=== PATIENT | female | born 1965 | race Caucasian/White ===

== ENCOUNTER 2016-11-26 16:07 | Emergency (ER) | payer OTHER ==
--- NOTE | 2016-11-26 17:06 | DIAGNOSTIC IMAGING REPORT ---
PROCEDURE: XR CHEST 2 VIEW INDICATION: FEVER TECHNIQUE: PA and lateral views. COMPARISON: Compared to chest x-ray on 01/05/2016 FINDINGS: Lungs are clear. Heart and mediastinum are normal. Thorax is normal. IMPRESSION: 1. Negative chest.
--- NOTE | 2016-11-26 17:59 | ED NURSING NOTES ---
Clinical Report - Nurses [facility] [address] [place] [address] 11/26/2016 16:07 Patient: KWAN JONES TRIAGE Triage time 16:19. Acuity: LEVEL 3. Chief Complaint: FEVER and FATIGUE (headache, vomiting, onset 11/21/16. She was seen at [facility] and was prescribed Prednisone, Zithromax, and Pro-air inhaler. Positive Flu on Tuesday.). 16:35 11/26/16. SEPSIS SCREEN: Sepsis Screen. Negative (no infection suspected/documented). GUDELIA COMA SCORE: Gudelia Coma Scale: 15- eyes open spontaneously (4); best verbal response- oriented x 4 (5); best motor response- obeys commands (6). --16:35 Kenji Lerner R.N. 16:19 11/26/16. BP: 130/76. HR: 116. RR: 20. O2 saturation: 94% on room air. Temp: 100.4 F (oral). Pain level now: 05/19. --16:35 Kenji Lerner R.N. Weight: 130.1 kg stated. Height/Length: 64 inches Per Patient. BMI: 49.3. --16:32 Kenji Lerner R.N. Medications Advair Diskus Inhalation. --16:59 Kenji Lerner R.N. Zithromax Oral. --17:00 Kenji Lerner R.N. Cyclobenzaprine HCl Oral. --17:00 Kenji Lerner R.N. Cymbalta Oral (Capsule Delayed Release Particles 30 mg) 2 capsules, daily. --17:00 Kenji Lerner R.N. Humira Pen Subcutaneous. --17:00 Kenji Lerner R.N. DuoNeb. --17:01 Kenji Lerner R.N. Levothyroxine Sodium Oral. --17:01 Kenji Lerner R.N. Lyrica Oral. --17:01 Simbeck, Kenji, R.N. PredniSONE Oral. --17:01 Kenji Lerner R.N. PriLOSEC Oral. --17:02 Kenji Lerner R.N. Allergies Constrast IV Dye. Penicillins. --16:20 Kenji Lerner R.N. Sertraline. --17:07 Kenji Lerner R.N. Toradol. --17:07 Kenji Lerner R.N. Tromethamine. --17:09 Kenji Lerner R.N. Cipro. --17:09 Kenji Lerner R.N. Iodine. --17:09 Kenji Lerner R.N. Influenza vaccine Trival. --17:10 Kenji Lerner R.N. History Arrived by private vehicle. Historian: patient and family. Accompanied by family. Treatment OPERATIONS ADVISOR: None. SOCIAL HX: Never smoker. No alcohol use or drug use. ABUSE ASSESSMENT: No report of abuse. --16:35 Kenji Lerner R.N. PROBLEMS: Bronchitis. Seizure. Seizure Disorder. Immunizations. --16:21 Kenji Lerner R.N. Thyroid Disease. Pneumonia. Liver disease. Depression. Anxiety Reaction. Irritable Bowel Syndrome. Fibromyalgia. Sleep paralysis. Vitamin D deficiency. Paresthesia. Pseudoseizure. Psoriasis. Sleep Apnea. PTSD. Psoriatic arthritis. Chronic Headache. --17:14 Kenji Lerner R.N. ADDITIONAL SURGERIES: Appendectomy. Hysterectomy. Tonsillectomy. --16:21 Kenji Lerner R.N. Interventions ID band on patient. To treatment room. --16:35 Kenji Lerner R.N. NURSING PROGRESS NOTES 16:45 11/26/2016 Site #1 started via IV in the right antecubital space with an 18g angiocath, with aseptic technique and good blood return; one attempt. Blood drawn: rainbow set. Labeled in the presence of the patient and sent to the lab. Saline lock flushed with 10 mL saline. --16:51 Kenji Lerner R.N. 16:45 11/26/2016 Started bag #1 1000 mL IV Fluids IV NS (Saline); bolus of 1000 mL over 1 hour(s) via site #1. Allergies verified and confirmed 5 rights. IV patency established. IV site checked: no pain, redness, or swelling. IV flushed thoroughly pre- and post-medication administration. --16:52 Kenji Lerner R.N. late entry -16:35. Patient gowned. Head of bed elevated. Reassurance given. Two patient identifiers checked. Call light placed in reach. Side rails up x 2. Bed placed in lowest position. Brakes of bed on. Patient ready for evaluation- chart flagged. --16:55 Kenji Lerner R.N. Patient transported to radiology by stretcher with Urlist. ([id number]). --16:56 Kenji Lerner R.N. 17:06 11/26/2016 Ibuprofen PO Tablets 800 mg given. Allergies verified and confirmed 5 rights. --17:06 Kenji Lerner R.N. 17:37 11/26/16. BP: 124/75. HR: 114. RR: 20. O2 saturation: 94% on room air. Pain level now: 810. --17:38 Kenji Lerner R.N. 18:20 11/26/2016 IV Fluids IV NS Bag Change: bag #1 completed. Total amount infused: 1000. STARTED bag #2 (1000 mL) at 1000 mL/hr via IV pump. Confirmed 5 rights. IV patency established. IV site checked: no pain, redness, or swelling. IV flushed thoroughly. --18:24 Kenji Lerner R.N. 18:28 11/26/2016 Zofran (Ondansetron HCl) IVP 4 mg given over 1 minute(s) via site #1. Allergies verified and confirmed 5 rights. IV patency established. IV site checked: no pain, redness, or swelling. IV flushed thoroughly pre- and post-medication administration. IVP given by RN. --18:32 Kenji Lerner R.N. 18:29 11/26/2016 Dilaudid (HYDROmorphone HCl PF) IVP 0.5 mg given over 1 hour(s) via site #1. Allergies verified, confirmed 5 rights and sedative warning given to the patient. IV patency established. IV site checked: no pain, redness, or swelling. IV flushed thoroughly pre- and post-medication administration. IVP given by RN. --18:33 Kenji Lerner R.N. 19:05. Care transferred and report given (Alfredo Roldan, RN). --19:16 Kenji Lerner R.N. 19:27 11/26/16. BP: 128/52. HR: 109. RR: 16. O2 saturation: 94% on room air. Pain level now: 02/16. Additional comments: "Eyes hurt". --19:30 Alfredo Chavez R.N. 19:30 11/26/2016 IV Fluids IV NS Discontinued: bag #2 infused. Total amount infused: 1000 mL. IV patency established. IV site checked: no pain, redness, or swelling. IV flushed thoroughly. --19:33 Alfredo Chavez R.N. 20:30 11/26/2016 Dilaudid (HYDROmorphone HCl PF) IVP 1 mg given over 2 minute(s) via site #1. Allergies verified, confirmed 5 rights and sedative warning given to the patient. IV patency established. IV site checked: no pain, redness, or swelling. IV flushed thoroughly pre- and post-medication administration. IVP given by RN. --04:27 Alfredo Chavez R.N. DISPOSITION / DISCHARGE 20:40 11/26/16. BP: 128/88. HR: 98. RR: 16. O2 saturation: 97% on room air. Temp: 98.9 F. Pain level now: 10/19. --04:45 Alfredo Chavez R.N. Departure time: 2047. --04:45 Alfredo Chavez R.N. 20:48. Condition at departure: improved. No learning barriers present. Discharge instructions provided and reviewed with the patient. Reviewed medication(s) (prescription given to pt). Reviewed referral to family practice for followup. Patient and family verbalized understanding. Written instructions provided in Portuguese. The patient was discharged by the physician senior office assistant. She was discharged home and accompanied by family. She left the Emergency Department in a wheelchair and via private vehicle. Family member driving. --04:47 Alfredo Chavez R.N. Locked/Released at 11/27/2016 4:49 by Alfredo Chavez R.N.
--- NOTE | 2016-11-26 17:59 | ED NURSING NOTES ---
Clinical Report - Nurses [facility] [address] [place] [address] 11/26/2016 16:07 Patient: KWAN JONES TRIAGE Triage time 16:19. Acuity: LEVEL 3. Chief Complaint: FEVER and FATIGUE (headache, vomiting, onset 11/21/16. She was seen at [facility] and was prescribed Prednisone, Zithromax, and Pro-air inhaler. Positive Flu on Tuesday.). 16:35 11/26/16. SEPSIS SCREEN: Sepsis Screen. Negative (no infection suspected/documented). GUDELIA COMA SCORE: Gudelia Coma Scale: 15- eyes open spontaneously (4); best verbal response- oriented x 4 (5); best motor response- obeys commands (6). --16:35 Kenji Lerner R.N. 16:19 11/26/16. BP: 130/76. HR: 116. RR: 20. O2 saturation: 94% on room air. Temp: 100.4 F (oral). Pain level now: 05/19. --16:35 Kenji Lerner R.N. Weight: 130.1 kg stated. Height/Length: 64 inches Per Patient. BMI: 49.3. --16:32 Kenji Lerner R.N. Medications Advair Diskus Inhalation. --16:59 Kenji Lerner R.N. Zithromax Oral. --17:00 Kenji Lerner R.N. Cyclobenzaprine HCl Oral. --17:00 Kenji Lerner R.N. Cymbalta Oral (Capsule Delayed Release Particles 30 mg) 2 capsules, daily. --17:00 Kenji Lerner R.N. Humira Pen Subcutaneous. --17:00 Kenji Lerner R.N. DuoNeb. --17:01 Kenji Lerner R.N. Levothyroxine Sodium Oral. --17:01 Kenji Lerner R.N. Lyrica Oral. --17:01 Simbeck, Kenji, R.N. PredniSONE Oral. --17:01 Kenji Lerner R.N. PriLOSEC Oral. --17:02 Kenji Lerner R.N. Allergies Constrast IV Dye. Penicillins. --16:20 Kenji Lerner R.N. Sertraline. --17:07 Kenji Lerner R.N. Toradol. --17:07 Kenji Lerner R.N. Tromethamine. --17:09 Kenji Lerner R.N. Cipro. --17:09 Kenji Lerner R.N. Iodine. --17:09 Kenji Lerner R.N. Influenza vaccine Trival. --17:10 Kenji Lerner R.N. History Arrived by private vehicle. Historian: patient and family. Accompanied by family. Treatment LOAN ORIGINATOR: None. SOCIAL HX: Never smoker. No alcohol use or drug use. ABUSE ASSESSMENT: No report of abuse. --16:35 Kenji Lerner R.N. PROBLEMS: Bronchitis. Seizure. Seizure Disorder. Immunizations. --16:21 Kenji Lerner R.N. Thyroid Disease. Pneumonia. Liver disease. Depression. Anxiety Reaction. Irritable Bowel Syndrome. Fibromyalgia. Sleep paralysis. Vitamin D deficiency. Paresthesia. Pseudoseizure. Psoriasis. Sleep Apnea. PTSD. Psoriatic arthritis. Chronic Headache. --17:14 Kenji Lerner R.N. ADDITIONAL SURGERIES: Appendectomy. Hysterectomy. Tonsillectomy. --16:21 Kenji Lerner R.N. Interventions ID band on patient. To treatment room. --16:35 Kenji Lerner R.N. NURSING PROGRESS NOTES 16:45 11/26/2016 Site #1 started via IV in the right antecubital space with an 18g angiocath, with aseptic technique and good blood return; one attempt. Blood drawn: rainbow set. Labeled in the presence of the patient and sent to the lab. Saline lock flushed with 10 mL saline. --16:51 Kenji Lerner R.N. 16:45 11/26/2016 Started bag #1 1000 mL IV Fluids IV NS (Saline); bolus of 1000 mL over 1 hour(s) via site #1. Allergies verified and confirmed 5 rights. IV patency established. IV site checked: no pain, redness, or swelling. IV flushed thoroughly pre- and post-medication administration. --16:52 Kenji Lerner R.N. late entry -16:35. Patient gowned. Head of bed elevated. Reassurance given. Two patient identifiers checked. Call light placed in reach. Side rails up x 2. Bed placed in lowest position. Brakes of bed on. Patient ready for evaluation- chart flagged. --16:55 Kenji Lerner R.N. Patient transported to radiology by stretcher with Baiyaxuan. ([id number]). --16:56 Kenji Lerner R.N. 17:06 11/26/2016 Ibuprofen PO Tablets 800 mg given. Allergies verified and confirmed 5 rights. --17:06 Kenji Lerner R.N. 17:37 11/26/16. BP: 124/75. HR: 114. RR: 20. O2 saturation: 94% on room air. Pain level now: 810. --17:38 Kenji Lerner R.N. 18:20 11/26/2016 IV Fluids IV NS Bag Change: bag #1 completed. Total amount infused: 1000. STARTED bag #2 (1000 mL) at 1000 mL/hr via IV pump. Confirmed 5 rights. IV patency established. IV site checked: no pain, redness, or swelling. IV flushed thoroughly. --18:24 Kenji Lerner R.N. 18:28 11/26/2016 Zofran (Ondansetron HCl) IVP 4 mg given over 1 minute(s) via site #1. Allergies verified and confirmed 5 rights. IV patency established. IV site checked: no pain, redness, or swelling. IV flushed thoroughly pre- and post-medication administration. IVP given by RN. --18:32 Kenji Lerner R.N. 18:29 11/26/2016 Dilaudid (HYDROmorphone HCl PF) IVP 0.5 mg given over 1 hour(s) via site #1. Allergies verified, confirmed 5 rights and sedative warning given to the patient. IV patency established. IV site checked: no pain, redness, or swelling. IV flushed thoroughly pre- and post-medication administration. IVP given by RN. --18:33 Kenji Lerner R.N. 19:05. Care transferred and report given (Alfredo Roldan, RN). --19:16 Kenji Lerner R.N. 19:27 11/26/16. BP: 128/52. HR: 109. RR: 16. O2 saturation: 94% on room air. Pain level now: 02/16. Additional comments: "Eyes hurt". --19:30 Alfredo Chavez R.N. 19:30 11/26/2016 IV Fluids IV NS Discontinued: bag #2 infused. Total amount infused: 1000 mL. IV patency established. IV site checked: no pain, redness, or swelling. IV flushed thoroughly. --19:33 Alfredo Chavez R.N. 20:30 11/26/2016 Dilaudid (HYDROmorphone HCl PF) IVP 1 mg given over 2 minute(s) via site #1. Allergies verified, confirmed 5 rights and sedative warning given to the patient. IV patency established. IV site checked: no pain, redness, or swelling. IV flushed thoroughly pre- and post-medication administration. IVP given by RN. --04:27 Alfredo Chavez R.N. DISPOSITION / DISCHARGE 20:40 11/26/16. BP: 128/88. HR: 98. RR: 16. O2 saturation: 97% on room air. Temp: 98.9 F. Pain level now: 10/19. --04:45 Alfredo Chavez R.N. Departure time: 2047. --04:45 Alfredo Chavez R.N. 20:48. Condition at departure: improved. No learning barriers present. Discharge instructions provided and reviewed with the patient. Reviewed medication(s) (prescription given to pt). Reviewed referral to family practice for followup. Patient and family verbalized understanding. Written instructions provided in Guyanese. The patient was discharged by the physician family and divorce legal assistant. She was discharged home and accompanied by family. She left the Emergency Department in a wheelchair and via private vehicle. Family member driving. --04:47 Alfredo Chavez R.N. Locked/Released at 11/27/2016 4:49 by Alfredo Chavez R.N.
--- NOTE | 2016-11-26 17:59 | ED ORDER SUMMARY ---
..... Patient: KWAN JONES OrderSheet [facility] VisitID: [id number] [address] [place] [address] 51y, F Registration Date/Time: 11/26/2016 ORDER SHEET Weight: 130.1 kg (stated) Allergies: Constrast IV Dye, Penicillins, Sertraline, Toradol, Tromethamine, Cipro, Iodine, Influenza vaccine Trival GENERAL ORDERS: Chest 2V Urgent (16:36 11/26/2016 JCoates) (Ack 16:44 LTapper) (19:09 [facility] Speech Language) CBC w Diff Urgent (16:37 11/26/2016 JCoates) (Ack 16:45 LTapper) (16:51 JSimbeck R.N.) CMP Urgent (16:37 11/26/2016 JCoates) (Ack 16:45 LTapper) (16:51 JSimbeck R.N.) Urine Urgent (16:37 11/26/2016 JCoates) (16:38 JSimbeck R.N.) UA-Culture if indicated Urgent (16:37 11/26/2016 JCoates) (16:38 JSimbeck R.N.) - (February DC home after pain control. Thanks.) (17:55 11/26/2016 JCoates) (4:26 omanelli R.N.) MEDICATION ORDERS: Ibuprofen PO 800 mg (NOW) (16:37 11/26/2016 JCoates) (17:06 JSimbeck R.N.) IV FLUIDS: IV NS with Normal Saline 1 Liter: initial bolus 1000 mL (1000 mL/hr), then 1000 mL/hr for X1 (NOW) (16:36 11/26/2016 JCoates) (16:52 JSimbeck R.N.) IV Saline Lock (16:37 11/26/2016 JCoates) (16:51 JSimbeck R.N.) Dilaudid IV 0.5 mg (NOW) (17:55 11/26/2016 JCoates) (18:33 JSimbeck R.N.) Zofran IV 4 mg (NOW) (17:55 11/26/2016 JCoates) (18:32 JSimbeck R.N.) Dilaudid IV 1 mg (NOW) (20:52 11/26/2016 JCoates) (4:27 Rene Gramajo) ORDER SHEET NOTES: [Electronically signed by Fredi Vidales (00:08 11/27/2016)] [Electronically signed by Alfredo Chavez R.N. (04:49 11/27/2016)] [Electronically locked/signed by Alfredo Chavez R.N. (04:49 11/27/2016)]
--- NOTE | 2016-11-26 17:59 | ED CLINICAL REPORT ---
Clinical Report - Physicians/Mid Levels [facility] [address] [place] [address] 11/26/2016 16:07 Patient: KWAN JONES Time Seen: 16:25 Nov 26 2016; upon arrival. Arrived- By private vehicle. Historian- patient. HISTORY OF PRESENT ILLNESS Is still present. Chief Complaint: HEADACHE and FEVER. Cough and runny nose. This started 3 days ago. It was abrupt in onset. Described as a global headache. No neck pain. Not located in the facial region. At its maximum, severity described as 7 / 10. No associated nausea or vomiting. (Patient developed a cough, runny nose, sore throat, fever and headache 3 days ago. She was seen at the emergency room where she was diagnosed with influenza. However, her symptoms have persisted. She is not able to take Tylenol as she says herLFTs have been high in the past. She alsodidn't think she could take ibuprofen but says she hasn't had any problems with her kidneys.). Recent medical care: The patient was seen recently by a health care provider. REVIEW OF SYSTEMS The patient has had sinus pressure, fever, ear pain and a sore throat and cough. She has had pain on urination and back pain. No chest pain, difficulty breathing, abdominal pain, diarrhea or skin rash. All systems otherwise negative, except as recorded above. PAST HISTORY See nurses notes. History of chronic headaches. No history of heart disease or lung disease. SOCIAL HISTORY Never smoker. No alcohol use or drug use. ADDITIONAL NOTES The nursing notes have been reviewed. PHYSICAL EXAM Appearance: The patient appears ill and uncomfortable, is morbidly obese and is well nourished but not toxic appearing. She has normal color. Patient in mild distress. Eyes: Pupils equal, round and reactive to light. Eyes normal inspection. No photophobia. ENT: Ears normal. Nose normal. Pharynx normal. Neck: Normal inspection. Neck supple. No meningeal signs or lymphadenopathy. CVS: Normal heart rate and rhythm. Heart sounds normal. Respiratory: No respiratory distress. Breath sounds normal. Abdomen: Soft and nontender. Back: No CVA tenderness. (Mild lower lumbar paraspinous muscle tenderness to palpation.). Skin: Skin warm and dry. Normal skin color. No rash. Extremities: Extremities exhibit normal ROM. Neuro: Oriented X 3. Alert. Mood/affect normal. Speech normal. No motor deficit. No sensory deficit. LABS, X-RAYS, AND EKG Laboratory Tests: UA-Culture if indicated: (LISBETH: 11/26/2016 16:25) ( [facility] [place] 16:55) Final results Test Result Flag Units (Reference) URINE COLOR YELLOW URINE APPEARANCE CLEAR URINE GLUCOSE NEGATIVE (NEGATIVE) URINE BILIRUBIN NEGATIVE (NEGATIVE) URINE KETONE NEGATIVE (NEGATIVE) URINE SPECIFIC GRAVITY 1.010 (1.010-1.030) URINE PH 6.0 (5.0-8.0) URINE PROTEIN NEGATIVE (NEGATIVE) URINE UROBILINOGEN 0.2 EU/dL (0.2-1.0) URINE NITRITE NEGATIVE (NEGATIVE) URINE BLOOD NEGATIVE (NEGATIVE) URINE LEUK ESTERASE NEGATIVE (NEGATIVE) URINE RBC 0-1 rbc/hpf (0-1) URINE WBC 0-1 wbc/hpf (0-1) URINE EPITHELIAL CELLS 1-3 EPI/hpf (0-5) URINE BACTERIA TRACE (<1+) (NONE SEEN) URINE COMMENT CULT NOT INDICATED URINE CULTURES ARE SET-UP BASED ON THE FOLLOWING CRITERIA:POSITIVE NITRITEPOSITIVE LEUKOCYTE ESTERASEGREATER THAN 10 WHITE BLOOD CELLSMODERATE (2+) OR GREATER BACTERIA Urine: (LISBETH: 11/26/2016 16:25) ( [facility] [place]/26/2016 16:51) Final results Test Result Flag Units (Reference) URINE NEGATIVE CBC w Diff: (LISBETH: 11/26/2016 16:45) ( [facility] 16[facility]58[facility] Final results Test Result Flag Units (Reference) WHITE BLOOD COUNT 4.5 K/uL (4.5-11.5) RED BLOOD COUNT 4.57 M/uL (4.00-5.20) HEMOGLOBIN 13.1 gm/dL (12.0-16.0) HEMATOCRIT 39.2 % (36.0-46.0) MEAN CELL VOLUME 86 fL (80-100) MEAN CORPUSCULAR HGB 29 pg (26-34) MEAN CORPUSCULAR HGB CONC 33 g/dL (31-37) RED CELL DISTRIBUTION WIDTH 14.9 H % (11.6-14.8) PLATELET COUNT 239 K/uL (150-400) NEUTROPHIL % 72.9 % (50-75) LYMPH % 17.7 L % (25-40) MONO % 6.4 % (3-14) EOSINOPHIL % 2.3 % (0-4) BASOPHIL % 0.7 % (0-2) CMP: (LISBETH: 11/26/2016 16:45) ( [facility] 11/26/2016 17:13) Final results Test Result Flag Units (Reference) GLUCOSE 93 mg/dL (70-110) BUN 18 mg/dL (7-18) CREATININE 0.9 mg/dL (0.6-1.3) Estimated GFR >60 mL/min Estimated GFR- >60 mL/min Note: Persistent reduction over 3 months in eGFR<60 mL/min/1.73 m2 defines CKD. Patients with eGFR values>=60 mL/min/1.73 m2 may also have CKD if evidence ofpersistent proteinuria. Additional information may be foundat www.kidney.org. SODIUM 139 mmol/L (136-145) POTASSIUM 3.6 mmol/L (3.5-5.1) CHLORIDE 100 mmol/L (98-107) CARBON DIOXIDE 27 mmol/L (21-32) CALCIUM 7.8 L mg/dL (8.5-10.1) TOTAL PROTEIN 7.4 g/dL (6.4-8.2) ALBUMIN 3.6 g/dL (3.3-5.0) BILIRUBIN, TOTAL 0.6 mg/dL (0.0-1.0) ALKALINE PHOSPHATASE 81 U/L (46-116) AST (SGOT) 852 H U/L (15-37) ALT (SGPT) 434 H U/L (12-78) . PROGRESS AND PROCEDURES Course of Care: 16:37 11/26/16. Patient stable. Diagnosed with influenza 3 days ago which gives usa cause of her symptoms. We'll get a chest x-ray to rule out infiltrate as well as a UA to rule out UTI. Otherwise hydrate and give ibuprofen. If her LFTs are normal we'll give her some Tylenol as well. Patient better after ibuprofen. She does have significantly elevated LFTs so no Tylenol. We'll give a little bit of Dilaudid for pain control and discharged home. CLINICAL IMPRESSION Acute fever Influenza with upper respiratory infection. INSTRUCTIONS Take Tylenol (Acetaminophen) or Motrin (Ibuprofen) as needed for fever control. Take medication according to label instructions. Rest for three days. No dietary restrictions. Warnings: SEDATIVE MEDICATION: You were given sedative medication during your visit. Do not drive or operate dangerous machinery for 12 hours. GENERAL WARNINGS: Return or contact your physician immediately if your condition worsens or changes unexpectedly, if not improving as expected, or if other problems arise. SPECIFICALLY, return if you develop vomiting; or if there is no improvement in the fever. OTC Medications: Motrin IB 200 mg (available over the counter): take 3 orally every 8 hours Follow-up: Follow up with your doctor in three days if not better. Understanding of the discharge instructions verbalized by patient and family. (Electronically signed by Fredi Vidales, 11/27/2016 0:08)
--- NOTE | 2016-11-26 17:59 | ED ORDER SUMMARY ---
..... Patient: KWAN JONES OrderSheet [facility] VisitID: [id number] [address] [place] [address] 51y, F Registration Date/Time: 11/26/2016 ORDER SHEET Weight: 130.1 kg (stated) Allergies: Constrast IV Dye, Penicillins, Sertraline, Toradol, Tromethamine, Cipro, Iodine, Influenza vaccine Trival GENERAL ORDERS: Chest 2V Urgent (16:36 11/26/2016 JCoates) (Ack 16:44 LTapper) (19:09 [facility] C[facility] And Wheat Farmer) CBC w Diff Urgent (16:37 11/26/2016 JCoates) (Ack 16:45 LTapper) (16:51 JSimbeck R.N.) CMP Urgent (16:37 11/26/2016 JCoates) (Ack 16:45 LTapper) (16:51 JSimbeck R.N.) Urine Urgent (16:37 11/26/2016 JCoates) (16:38 JSimbeck R.N.) UA-Culture if indicated Urgent (16:37 11/26/2016 JCoates) (16:38 JSimbeck R.N.) - (February DC home after pain control. Thanks.) (17:55 11/26/2016 JCoates) (4:26 omanelli R.N.) MEDICATION ORDERS: Ibuprofen PO 800 mg (NOW) (16:37 11/26/2016 JCoates) (17:06 JSimbeck R.N.) IV FLUIDS: IV NS with Normal Saline 1 Liter: initial bolus 1000 mL (1000 mL/hr), then 1000 mL/hr for X1 (NOW) (16:36 11/26/2016 JCoates) (16:52 JSimbeck R.N.) IV Saline Lock (16:37 11/26/2016 JCoates) (16:51 JSimbeck R.N.) Dilaudid IV 0.5 mg (NOW) (17:55 11/26/2016 JCoates) (18:33 JSimbeck R.N.) Zofran IV 4 mg (NOW) (17:55 11/26/2016 JCoates) (18:32 JSimbeck R.N.) Dilaudid IV 1 mg (NOW) (20:52 11/26/2016 JCoates) (4:27 Rene Gramajo) ORDER SHEET NOTES: [Electronically signed by Fredi Vidales (00:08 11/27/2016)] [Electronically signed by Alfredo Chavez R.N. (04:49 11/27/2016)] [Electronically locked/signed by Alfredo Chavez R.N. (04:49 11/27/2016)]
--- NOTE | 2016-11-27 04:50 | ED MAR SUMMARY ---
..... Medication Administration Record [facility] [address] [place] [address] Patient: KWAN JONES Visit ID: [id number] 51y, F Weight: 130.1 kg Height/Length: 64 in BMI: 49.3 ALLERGIES: Constrast IV Dye, Penicillins, Toradol, Sertraline, Influenza vaccine Trival, Iodine, Cipro, Tromethamine Start 16:45 11/26/2016 Kenji Lerner R.N., Stop 19:30 11/26/2016 Alfredo Chavez R.N. Medication Administered: IV NS (SALINE), Dose: IV Fluids, Bolus: 1000 mL over 1 hour(s), Dispensed: 1000 mL bag, Site: #1 right AC. Medication Ordered: IV NS with Normal Saline 1 Liter: initial bolus 1000 mL (1000 mL/hr), then 1000 mL/hr for X1 (NOW). Given 17:06 11/26/2016 Kenji Lerner R.N. Medication Administered: IBUPROFEN [PO], Dose: 800 mg Tablets PO. Medication Ordered: Ibuprofen PO 800 mg (NOW). Given 18:28 11/26/2016 Kenji Lerner R.N. Medication Administered: ZOFRAN [IVP] (ONDANSETRON HCL), Dose: 4 mg IVP over 1 minute(s), Site: #1 right AC. Medication Ordered: Zofran IV 4 mg (NOW). Given 18:29 11/26/2016 Kenji Lerner R.N. Medication Administered: DILAUDID [IVP] (HYDROMORPHONE HCL PF), Dose: 0.5 mg IVP over 1 hour(s), Site: #1 right AC. Medication Ordered: Dilaudid IV 0.5 mg (NOW). Given 20:30 11/26/2016 Aflredo Chavez R.N. Medication Administered: DILAUDID [IVP] (HYDROMORPHONE HCL PF), Dose: 1 mg IVP over 2 minute(s), Site: #1 right AC. Medication Ordered: Dilaudid IV 1 mg (NOW).
--- NOTE | 2016-11-27 04:50 | ED MAR SUMMARY ---
..... Medication Administration Record [facility] [address] [place] [address] Patient: KWAN JONES Visit ID: [id number] 51y, F Weight: 130.1 kg Height/Length: 64 in BMI: 49.3 ALLERGIES: Constrast IV Dye, Penicillins, Toradol, Sertraline, Influenza vaccine Trival, Iodine, Cipro, Tromethamine Start 16:45 11/26/2016 Kenji Lerner R.N., Stop 19:30 11/26/2016 Alfredo Chavez R.N. Medication Administered: IV NS (SALINE), Dose: IV Fluids, Bolus: 1000 mL over 1 hour(s), Dispensed: 1000 mL bag, Site: #1 right AC. Medication Ordered: IV NS with Normal Saline 1 Liter: initial bolus 1000 mL (1000 mL/hr), then 1000 mL/hr for X1 (NOW). Given 17:06 11/26/2016 Kenji Lerner R.N. Medication Administered: IBUPROFEN [PO], Dose: 800 mg Tablets PO. Medication Ordered: Ibuprofen PO 800 mg (NOW). Given 18:28 11/26/2016 Kenji Lerner R.N. Medication Administered: ZOFRAN [IVP] (ONDANSETRON HCL), Dose: 4 mg IVP over 1 minute(s), Site: #1 right AC. Medication Ordered: Zofran IV 4 mg (NOW). Given 18:29 11/26/2016 Kenji Lerner R.N. Medication Administered: DILAUDID [IVP] (HYDROMORPHONE HCL PF), Dose: 0.5 mg IVP over 1 hour(s), Site: #1 right AC. Medication Ordered: Dilaudid IV 0.5 mg (NOW). Given 20:30 11/26/2016 Alfredo Chavez R.N. Medication Administered: DILAUDID [IVP] (HYDROMORPHONE HCL PF), Dose: 1 mg IVP over 2 minute(s), Site: #1 right AC. Medication Ordered: Dilaudid IV 1 mg (NOW).
--- NOTE | 2016-11-27 04:50 | ED MED RECONCILIATION SUMMARY ---
Patient: KWAN JONES Medication Reconciliation Report [facility] VisitID: [id number] [address] [place] [address] 51y, F Registration Date/Time: 11/26/2016 Weight: 130.1 kg Height/Length: 64 in. BMI: 49.3 ALLERGIES: Cipro, Constrast IV Dye, Influenza vaccine Trival, Iodine, Penicillins, Sertraline, Toradol, Tromethamine The patient's Home Medications are listed below: THE FOLLOWING MEDICATIONS NEED TO BE RECONCILED: Advair Diskus Inhalation Cyclobenzaprine HCl Oral Cymbalta Oral (30 mg) 2 capsules, daily DuoNeb Humira Pen Subcutaneous Levothyroxine Sodium Oral Lyrica Oral PredniSONE Oral PriLOSEC Oral Zithromax Oral The source(s) of the original Home Medication information: Not obtained. The following Medications were given to the patient in the Emergency Department: IV NS IV Fluids bolus 1000 mL over 1 hour(s), administered: 11/26/2016 4:45:00 PM Ibuprofen [PO] PO 800 mg, administered: 11/26/2016 5:06:00 PM Zofran [IVP] IVP 4 mg, administered: 11/26/2016 6:28:00 PM Dilaudid [IVP] IVP 0.5 mg, administered: 11/26/2016 6:29:00 PM Dilaudid [IVP] IVP 1 mg, administered: 11/26/2016 8:30:00 PM The following Medications were prescribed to the patient: Motrin IB 200 mg (available over the counter): take 3 orally every 8 hours -- Fredi Vidales
--- NOTE | 2016-11-27 04:50 | ED MED RECONCILIATION SUMMARY ---
Patient: KWAN JONES Medication Reconciliation Report [facility] VisitID: [id number] [address] [place] [address] 51y, F Registration Date/Time: 11/26/2016 Weight: 130.1 kg Height/Length: 64 in. BMI: 49.3 ALLERGIES: Cipro, Constrast IV Dye, Influenza vaccine Trival, Iodine, Penicillins, Sertraline, Toradol, Tromethamine The patient's Home Medications are listed below: THE FOLLOWING MEDICATIONS NEED TO BE RECONCILED: Advair Diskus Inhalation Cyclobenzaprine HCl Oral Cymbalta Oral (30 mg) 2 capsules, daily DuoNeb Humira Pen Subcutaneous Levothyroxine Sodium Oral Lyrica Oral PredniSONE Oral PriLOSEC Oral Zithromax Oral The source(s) of the original Home Medication information: Not obtained. The following Medications were given to the patient in the Emergency Department: IV NS IV Fluids bolus 1000 mL over 1 hour(s), administered: 11/26/2016 4:45:00 PM Ibuprofen [PO] PO 800 mg, administered: 11/26/2016 5:06:00 PM Zofran [IVP] IVP 4 mg, administered: 11/26/2016 6:28:00 PM Dilaudid [IVP] IVP 0.5 mg, administered: 11/26/2016 6:29:00 PM Dilaudid [IVP] IVP 1 mg, administered: 11/26/2016 8:30:00 PM The following Medications were prescribed to the patient: Motrin IB 200 mg (available over the counter): take 3 orally every 8 hours -- Fredi Vidales
--- NOTE | 2016-11-27 04:50 | ED DISCHARGE INSTRUCTIONS ---
Patient: KWAN JONES General Instructions [facility] VisitID: [id number] [place] [address] 51y, F Registration Date/Time: 11/26/2016 Acute fever Influenza with upper respiratory infection. INSTRUCTIONS Take Tylenol (Acetaminophen) or Motrin (Ibuprofen) as needed for fever control. Take medication according to label instructions. Rest for three days. No dietary restrictions. Warnings: SEDATIVE MEDICATION: You were given sedative medication during your visit. Do not drive or operate dangerous machinery for 12 hours. GENERAL WARNINGS: Return or contact your physician immediately if your condition worsens or changes unexpectedly, if not improving as expected, or if other problems arise. SPECIFICALLY, return if you develop vomiting; or if there is no improvement in the fever. OTC Medications: Motrin IB 200 mg (available over the counter): take 3 orally every 8 hours Follow-up: Follow up with your doctor in three days if not better. Understanding of the discharge instructions verbalized by patient and family. ADDITIONAL INFORMATION Influenza (Adult) Influenza, also called the flu, is a viral illness that affects the air passages of the lungs. It differs from the common cold. It is highly contagious. It may be spread through the air by coughing and sneezing or by direct contact (touching the sick person and then touching your own eyes, nose or mouth). Illness starts 1-3 days after exposure and lasts for 1-2 weeks. Antibiotics are usually not needed unless a complication appears (ear or sinus infection or pneumonia). Symptoms may be mild or severe and can include extreme tiredness (wanting to stay in bed all day), chills, fevers, muscle aching, soreness with eye movement, headache, and a dry, hacking cough. Home Care: Avoid exposure to cigarette smoke (yours or others). Tylenol or ibuprofen (Advil) will help fever, muscle aching, and headache. To avoid risk of liver injury, aspirin should not be used in children and teenagers under 18 with this illness. Nausea and loss of appetite are common. A light diet is recommended. Avoid dehydration by drinking 6-8 glasses of fluids per day (water, sport drinks like Gatorade, soft drinks without caffeine, juices, tea, soup, etc.). Extra fluids will also help loosen secretions in the nose and lungs. Ihiv-pmm-ohzegjh cold medicines will not shorten the duration of the illness but may be helpful for the following symptoms: cough (Robitussin DM); sore throat (Chloraseptic lozenges or spray); nasal and sinus congestion (Actifed or Sudafed). [NOTE: Do not use decongestants if you have high blood pressure.] Stay home until your fever has been gone for at least 24 hours (without the use of fever-reducing medications such as ibuprofen). Follow Up with your doctor or as directed by our staff if you are not improving over the next week. Note: If you are age 65 or older, or if you have chronic asthma or COPD, we recommend a pneumococcal vaccinationevery five years. All adults shouldreceive a yearly influenza vaccination every . Ask your doctor about this. Get Prompt Medical Attention if any of the following occur: Cough with lots of colored sputum (mucus) or blood in your sputum Chest pain, shortness of breath, wheezing, or difficulty breathing Severe headache, face, neck or ear pain New rash Fever of 100.4F (38C) oral or higher, not better with fever medication Confusion, behavior change or seizure Severe weakness or dizziness Febrile Illness, Uncertain Cause (Adult) You have a fever, but the cause is not certain. A fever is a natural reaction of the body to an illness such as infections due to a virus or bacteria. In most cases, the temperature itself is not harmful. It actually helps the body fight infections. A fever does not need to be treated unless you feel very uncomfortable. Sometimes a fever can be an early sign of a more serious infection. Therefore, you should watch for the signs listed below. Home Care: If signs and symptoms are severe, rest at home for the first 2-3 days. When you resume activity, don't let yourself get too tired. Stay away from cigarette smoke (yours and other peoples). You may use acetaminophen (Tylenol) or ibuprofen (Motrin, Advil) to control fever or pain, unless another medicine was prescribed. NOTE: If you have chronic liver or kidney disease or ever had a stomach ulcer or GI bleeding, talk with your doctor before using these medicines. (Aspirin should never be used in anyone under 18 years of age who is ill with a fever. It may cause severe liver damage.) Your appetite may be poor, so a light diet is fine. Avoid dehydration by drinking 6-8 glasses of fluid per day (water, sport drinks such as Gatorade, sodas without caffeine, juices, tea, soup). Extra fluid will help loosen secretions in the nose and lungs. Ecai-nnp-zrelpkq products will not shorten the duration of the illness but may be helpful for the following symptoms: cough (Robitussin DM); sore throat (Chloraseptic lozenges or spray); nasal and sinus congestion (Actifed or Sudafed). NOTE: Do not use decongestants if you have high blood pressure. Follow Up with your doctor or as advised if you do not start to improve over the next week. Get Prompt Medical Attention if any of the following occur: Cough with lots of colored sputum (mucus) or blood in your sputum Chest pain, shortness of breath, wheezing or difficulty breathing Severe headache, face, neck, throat or ear pain Feeling drowsy or confused Abdominal pain, repeated vomiting or diarrhea Joint pain or a new rash Burning when urinating Fever of 100.4F (38C) oral or higher, not better with fever medication Feeling weak or dizzy Convulsion Ibuprofen Oral tablet What is this medicine? IBUPROFEN (eye BYOO proe fen) is a non-steroidal anti-inflammatory drug (NSAID). It is used for dental pain, fever, headaches or migraines, osteoarthritis, rheumatoid arthritis, or painful monthly periods. It can also relieve minor aches and pains caused by a cold, flu, or sore throat. How should I use this medicine? Take this medicine by mouth with a glass of water. Follow the directions on the prescription label. Take this medicine with food if your stomach gets upset. Try to not lie down for at least 10 minutes after you take the medicine. Take your medicine at regular intervals. Do not take your medicine more often than directed. A special MedGuide will be given to you by the pharmacist with each prescription and refill. Be sure to read this information carefully each time. Talk to your aoc plans intelligence officer regarding the use of this medicine in children. Special care may be needed. What side effects may I notice from receiving this medicine? Side effects that you should report to your doctor or health transitions rn care coordinator as soon as possible: allergic reactions like skin rash, itching or hives, swelling of the face, lips, or tongue black or bloody stools, blood in the urine or in vomit breathing problems changes in vision chest pain general ill feeling or flu-like symptoms nausea or vomiting redness, blistering, peeling or loosening of the skin, including inside the mouth slurred speech or weakness on one side of the body stomach pain unexplained weight gain or swelling unusually weak or tired yellowing of eyes or skin Side effects that usually do not require medical attention (report to your doctor or health transitions rn care coordinator if they continue or are bothersome): constipation or diarrhea dizziness gas or heartburn stomach upset What may interact with this medicine? Do not take this medicine with any of the following medications: cidofovir ketorolac methotrexate pemetrexed This medicine may also interact with the following medications: alcohol aspirin diuretics lithium other drugs for inflammation like prednisone warfarin What if I miss a dose? If you miss a dose, take it as soon as you can. If it is almost time for your next dose, take only that dose. Do not take double or extra doses. Where should I keep my medicine? Keep out of the reach of children. Store at room temperature between 15 and 30 degrees C (59 and 86 degrees F). Keep container tightly closed. Throw away any unused medicine after the expiration date. What should I tell my health care provider before I take this medicine? They need to know if you have any of these conditions: asthma cigarette smoker drink more than 3 alcohol containing drinks a day heart disease or circulation problems such as heart failure or leg edema (fluid retention) high blood pressure kidney disease liver disease stomach bleeding or ulcers an unusual or allergic reaction to ibuprofen, aspirin, other NSAIDS, other medicines, foods, dyes, or preservatives or trying to get breast-feeding What should I watch for while using this medicine? Tell your doctor or healthcare professional if your symptoms do not start to get better or if they get worse. This medicine does not prevent heart attack or stroke. In fact, this medicine may increase the chance of a heart attack or stroke. The chance may increase with longer use of this medicine and in people who have heart disease. If you take aspirin to prevent heart attack or stroke, talk with your doctor or health transitions rn care coordinator. Do not take other medicines that contain aspirin, ibuprofen, or naproxen with this medicine. Side effects such as stomach upset, nausea, or ulcers may be more likely to occur. Many medicines available without a prescription should not be taken with this medicine. This medicine can cause ulcers and bleeding in the stomach and intestines at any time during treatment. Ulcers and bleeding can happen without warning symptoms and can cause . To reduce your risk, do not smoke cigarettes or drink alcohol while you are taking this medicine. You may get drowsy or dizzy. Do not drive, use machinery, or do anything that needs mental alertness until you know how this medicine affects you. Do not stand or sit up quickly, especially if you are an older patient. This reduces the risk of dizzy or fainting spells. This medicine can cause you to bleed more easily. Try to avoid damage to your teeth and gums when you brush or floss your teeth. You have been given the following additional information: Influenza (Adult) Febrile Illness, Uncertain Cause (Adult) Ibuprofen Oral tablet Rest for three days. (Electronically signed by Fredi Vidales, 11/27/2016 0:08)
== END 2016-11-26 20:48 | disposition home or self-care (01) ==
LOC: ED SRH 16:07
DX: J11.1 Influenza due to unidentified influenza virus with other respiratory manifestations (principal); J06.9 Acute upper respiratory infection, unspecified; R50.9 Fever, unspecified; Z79.899 Other long term (current) drug therapy; Z88.0 Allergy status to penicillin; Z88.8 Allergy status to other drugs, medicaments and biological substances; Z91.041 Radiographic dye allergy status; Z88.1 Allergy status to other antibiotic agents
CPT/HCPCS: 90004; 90100; 93070; 95059

== ENCOUNTER 2017-03-01 08:06 | Emergency (ER) | payer OTHER ==
--- NOTE | 2017-03-01 10:37 | ED NURSING NOTES ---
Clinical Report - Nurses [facility] [address] [place] [address] 03/01/2017 8:06 Patient: KWAN JONES TRIAGE Acuity: LEVEL 4. Chief Complaint: BACK PAIN. 08:22 03/01/17. 08:03/01/17. Alert. ( Pt woke up yesterday with neck pain that has now progressed to pain that is in-between her shoulders). SEPSIS SCREEN: Sepsis Screen. Negative (no infection suspected/documented). IRMA COMA SCORE: [place] Coma Scale: 15- eyes open spontaneously (4); best verbal response- oriented x 4 (5); best motor response- obeys commands (6). --08:25 Dale Mendoza R.N. 08:21 03/01/17. BP: 141/95. HR: 92. RR: 18. O2 saturation: 100% on room air. Temp: 98.6 F (oral). Pain level now: 07/19. --08:25 Dale Mendoza R.N. Weight: 127.9 kg. Height/Length: 64 inches. BMI: 48.4. --08:21 Dale Mendoza R.N. Medications Advair Diskus Inhalation. Cyclobenzaprine HCl Oral. Cymbalta Oral (Capsule Delayed Release Particles 30 mg) 2 capsules, daily. DuoNeb. Levothyroxine Sodium Oral. PredniSONE Oral, as needed. PriLOSEC Oral. --08:23 Dale Mendoza R.N. Medication/allergy information source: the patient and patient's family. --08:25 Dale Mendoaz R.N. Allergies Cipro. Constrast IV Dye. Influenza vaccine Trival. Iodine. Penicillins. Sertraline. Toradol. Tromethamine. --08:23 Dale Mendoza R.N. Methotrexate. --08:24 Dale Mendoza R.N. Lyrica. --08:24 Dale Mendoza R.N. Enbrel. --08:30 Dale Mendoza R.N. The following entry was struck by Dale Mendoza R.N., 08:29 (03/01/17) Reason - other. <<STRICKEN ENTRY-- Embril. --08:24 Dale Mendoza R.N. --END STRIKE>>. History Arrived by private vehicle. Historian: patient. Accompanied by family. Primary physician (JONATHAN CERON). 08:22 03/01/17. This started yesterday. No history of recent trauma. Treatment MECHANICAL SYSTEM TECHNICIAN: None. PAST MEDICAL HX: Tetanus status: up-to-date. Immunizations: (allergic to influenza vaccine). SOCIAL HX: Never smoker. No alcohol use or drug use. No infectious disease exposure. ABUSE ASSESSMENT: No report of abuse. FALL RISK ASSESSMENT: Fall risk assessment completed. No fall risk identified. NUTRITIONAL RISK ASSESSMENT: The nutritional risk assessment revealed no deficiencies. FUNCTIONAL ASSESSMENT: Functional assessment: no impairments noted. LEARNING NEEDS ASSESSMENT: The learning needs assessment revealed no barriers. SKIN INTEGRITY ASSESSMENT: Skin integrity risk assessment completed. No skin integrity risk identified. --08:25 Dale Mendoza R.N. PAST MEDICAL HX: The patient has had a hysterectomy. --08:26 Dale Mendoza R.N. PROBLEMS: Fever. Thyroid Disease. Pneumonia. Liver disease. Depression. Anxiety Reaction. Irritable Bowel Syndrome. Fibromyalgia. Sleep paralysis. Vitamin D deficiency. Paresthesia. Pseudoseizure. Psoriasis. Sleep Apnea. PTSD. Psoriatic arthritis. Chronic Headache. Bronchitis. Seizure. Seizure Disorder. Immunizations. --08:25 Dale Mendoza R.N. ADDITIONAL SURGERIES: Appendectomy. Hysterectomy. Tonsillectomy. --08:25 Dale Mendoza R.N. Assessment 08:22 03/01/17. --08:25 Dale Mendoza R.N. Interventions 08:22 03/01/17. 08:03/01/17. ID and allergy band on patient. To treatment room. --08:25 Dale Mendoza R.N. PHYSICAL ASSESSMENT 08:26 03/01/17. To room via wheelchair. GENERAL / NEURO / PSYCH: Alert. Oriented X 4. Appears in pain. RESPIRATORY: Respirations not labored. CVS: Capillary refill less than 2 seconds. BACK: Normal inspection of the neck and back. Vertebral point tenderness over the thoracic spine. Soft tissue tenderness in the right upper thoracic paraspinous region. --08:26 Dale Mendoza R.N. NURSING PROGRESS NOTES 08:03/01/17. The plan of care for this patient has been created. Head of bed elevated. Reassurance given. Call light placed in reach. Side rails up x 2. Bed placed in lowest position. Brakes of bed on. --08:26 Dale Mendoza R.N. 08:03/01/17. Patient ready for evaluation- chart flagged and notification provided. --08:26 Dale Mendoza R.N. 08:51 03/01/2017 Morphine (Morphine Sulfate (PF)) IM 4 mg given. Given in the right deltoid. Allergies verified, confirmed 5 rights and sedative warning given to the patient. --08:51 Dale Mendoza R.N. 09:22 03/01/2017 Diazepam (Diazepam) IM 10 mg given. Given in the left deltoid. Allergies verified, confirmed 5 rights and sedative warning given to the patient. --09:37 Dale Mendoza R.N. 09:56 03/01/2017 Morphine (Morphine Sulfate (PF)) IM 10 mg given. Given in the right deltoid. Allergies verified, confirmed 5 rights and sedative warning given to the patient. --09:56 Dale Mendoza R.N. 09:57 03/01/17. --09:57 Dale Mendoza R.N. 09:57 03/01/17. BP: 142/89. HR: 72. RR: 14. O2 saturation: 99% on room air. --09:57 Dale Mendoza R.N. 09:57 03/01/17. GENERAL / NEURO / PSYCH: Alert. Oriented X 4. RESPIRATORY: No respiratory distress. Breath sounds normal. SKIN: Skin is warm and dry. --09:57 Dale Mendoza R.N. 09:58 03/01/17. --09:58 Dale Mendoza R.N. 09:57 03/01/17. Pain level now: 05/19. --09:58 Dale Mendoza R.N. 10:01 03/01/17. Patient informed about reason for wait and about plan of care. --10:01 Dale Mendoza R.N. 10:11 03/01/17. Overall patient status (Pt states she feels slightly better, 7/10 pain). --10:11 Dale Mendoza R.N. DISPOSITION / DISCHARGE 10:49 03/01/17. Condition at departure: improved. The goals identified in the patient's plan of care were met. No learning barriers present. Discharge instructions provided and reviewed with the patient. Reviewed warnings. Reviewed medication(s). Treatments reviewed. Patient and cloth dyeing range tender verbalized understanding. Written instructions provided in [place]. The patient was discharged by the physician. She was discharged home and accompanied by family. She left the Emergency Department ambulatory and via private vehicle. Family member driving. FALL RISK ASSESSMENT: Fall risk assessment completed. No fall risk identified. --10:49 Dale Mendoza R.N. 10:48 03/01/17. BP: 146/71. HR: 76. RR: 15. O2 saturation: 99% on room air. Temp: 98.2 F (oral). Pain level now: 02/16. --10:49 Dale Mendoza R.N. 10:49 03/01/17. Departure time: 10:49. --10:49 Dale Mendoza R.N. ( Assisted patient with dressing and loading in to car with patients niece). --10:59 Dale Mendoza R.N. Locked/Released at 03/01/2017 11:00 by Dale Mendoza R.N.
--- NOTE | 2017-03-01 10:37 | ED CLINICAL REPORT ---
Clinical Report - Physicians/Mid Levels [facility] [address] [place] [address] 03/01/2017 8:06 Patient: KWAN JONES Time Seen: 08:21; initial patient contact. Arrived- By private vehicle. Historian- patient. HISTORY OF PRESENT ILLNESS Chief Complaint: BACK PAIN. Modifying factors- worsened by bending over, lifting and coughing. Not relieved by anything. Onset was last night and it is still present (persistent). It is described as being moderate in degree and in the area of the cervical spine and upper thoracic spine, left interscapular area and right interscapular area. The quality is noted to be aching and "pain". No radiation. No bladder dysfunction, bowel dysfunction or motor loss. Mild sensory loss involving the right hand and left hand. Patient denies an injury but injury to the head or chest. Similar symptoms previously: Several times. Recent medical care: Not recently seen/assessed. REVIEW OF SYSTEMS No fever, chills, eye discomfort, headache or sore throat. No cough, difficulty breathing, chest pain, skin rash or abdominal pain. No nausea, vomiting, diarrhea, black stools or difficulty with urination. No urinary frequency, hematuria or bloody stools. All systems otherwise negative, except as recorded above. PAST HISTORY Cipro. Constrast IV Dye. Influenza vaccine Trival. Iodine. Penicillins. Sertraline. Toradol. Tromethamine. Methotrexate. Lyrica. Enbrel. SOCIAL HISTORY Never smoker. No alcohol use or drug use. ADDITIONAL NOTES The nursing notes have been reviewed. PHYSICAL EXAM Vital Signs: 03/01/2017 08:21 BP: 141/95. HR: 92. RR: 18. O2 saturation: 100%. Temp: 98.6 F. Pain level now: 07/19. Have been reviewed. Hypertensive. Heart rate normal. Respiratory rate normal. Temperature normal. Oxygen saturation normal. Appearance: Alert. Appears to be in pain. Neck: Moderate pain in the entire posterior neck upon turning the head to the right, turning the head to the left, lifting the head, flexing the neck and extending the neck. Moderate muscle spasm of the right and left posterior neck. No vertebral tenderness. Moderate soft tissue tenderness in the right upper, mid and lower neck area and left upper, mid and lower neck area. No meningeal signs. Respiratory: No respiratory distress. Abdomen: Obese. Back: Soft tissue tenderness (R side, between scapula and spine.). No vertebral point tenderness. Skin: Skin warm and dry. Normal skin color. No rash. Normal skin turgor. Extremities: Extremities exhibit normal ROM. Neuro: No motor deficit. Sensory deficit present. (Mild light touch to both hands). Reflex exam: right triceps 2+, left triceps 2+, right brachioradialis 2+ and left brachioradialis 2+. LABS, X-RAYS, AND EKG C-Spine X-rays: No acute findings. Soft tissues normal. No fracture or subluxation. Views: 3 view C-spine series. Technique: good. The X-rays were independently viewed by me, interpreted by the radiologist and contemporaneously by me and discussed with the radiologist. Prior films were not available for comparison. Pulse Oximetry: 03/01/2017 08:21 O2 saturation: 100%. (FIO2 - room air). Interpretation: normal. PROGRESS AND PROCEDURES Course of Care: I assumed care from Dr. Dwyer at change of shift. Patient was given IM Valium and morphine for symptomatic control. Her C-spine x-ray series was unremarkable. No emergent condition was identified. I did fill her pain was muscular in etiology. Patient counseled in person regarding the patient's stable condition, test results, diagnosis and need for follow-up. Old medical records reviewed. Disposition: Discharged. Condition: stable and improved. CLINICAL IMPRESSION Acute nontraumatic thoracic back pain. (muscle spasm). INSTRUCTIONS Warnings: SEDATIVE MEDICATION: You were given sedative medication during your visit. Do not drive or operate dangerous machinery for 8 hours. GENERAL WARNINGS: Return or contact your physician immediately if your condition worsens or changes unexpectedly, if not improving as expected, or if other problems arise. Your Current Medications: CONTINUE TAKING THE FOLLOWING MEDICATIONS: Advair Diskus Inhalation. Cyclobenzaprine HCl Oral. Cymbalta Oral : Capsule Delayed Release Particles 30 mg, 2 capsules daily. DuoNeb*. Levothyroxine Sodium Oral. PredniSONE Oral : prn. PriLOSEC Oral. Prescription Medications: Hydrocodone/APAP 5mg / 325mg: take 1-2 orally every 6 hours as needed for pain. Dispense fifteen (15). No refill. Ibuprofen 800 mg tablets: take 1 tablet orally every 8 hours as needed for pain. Dispense twenty (20). No refill. Follow-up: Follow up with your doctor in seven days if not better. Understanding of the discharge instructions verbalized by patient. (Electronically signed by Ladan Pizarro MD 03/01/2017 13:20)
--- NOTE | 2017-03-01 10:37 | ED ORDER SUMMARY ---
..... Patient: KWAN JONES OrderSheet [facility] VisitID: [id number] [address] [place] [address] 51y, F Registration Date/Time: 03/01/2017 ORDER SHEET Weight: 127.9 kg Allergies: Cipro, Constrast IV Dye, Influenza vaccine Trival, Iodine, Penicillins, Sertraline, Toradol, Tromethamine, Methotrexate, Lyrica, Enbrel GENERAL ORDERS: Cervical Spine 2 or 3V Urgent (08:42 03/01/2017 Fritz Farmer) (Ack 8:58 NHouse ER Tech1) (9:42 JBoardley R.N.) MEDICATION ORDERS: Morphine IM 4 mg (HIGH ALERT MEDICATION, NOW) (08:42 03/01/2017 Fritz Farmer) (Ack 8:44 JBoardley R.N.) (8:51 JBoardley R.N.) Diazepam IM 10 mg (HIGH ALERT MEDICATION, NOW) (08:43 03/01/2017 Fritz Farmer) (Ack 8:44 JBoardley R.N.) (9:37 JBoardley R.N.) Morphine IM 10 mg (HIGH ALERT MEDICATION, NOW) (09:54 03/01/2017 Mirza SKAGGS) (9:56 JBoardley R.N.) IV FLUIDS: ORDER SHEET NOTES: [Electronically signed by Dale Mendoza R.N. (11:00 03/01/2017)] [Electronically signed by Ladan Pizarro MD (13:20 03/01/2017)] [Electronically locked/signed by Dale Mendoza R.N. (11:00 03/01/2017)]
--- NOTE | 2017-03-01 10:37 | ED NURSING NOTES ---
Clinical Report - Nurses [facility] [address] [place] [address] 03/01/2017 8:06 Patient: KWAN JONES TRIAGE Acuity: LEVEL 4. Chief Complaint: BACK PAIN. 08:22 03/01/17. 08:03/01/17. Alert. ( Pt woke up yesterday with neck pain that has now progressed to pain that is in-between her shoulders). SEPSIS SCREEN: Sepsis Screen. Negative (no infection suspected/documented). IRMA COMA SCORE: [place] Coma Scale: 15- eyes open spontaneously (4); best verbal response- oriented x 4 (5); best motor response- obeys commands (6). --08:25 Dale Mendoza R.N. 08:21 03/01/17. BP: 141/95. HR: 92. RR: 18. O2 saturation: 100% on room air. Temp: 98.6 F (oral). Pain level now: 07/19. --08:25 Dale Mendoza R.N. Weight: 127.9 kg. Height/Length: 64 inches. BMI: 48.4. --08:21 Dale Mendoza R.N. Medications Advair Diskus Inhalation. Cyclobenzaprine HCl Oral. Cymbalta Oral (Capsule Delayed Release Particles 30 mg) 2 capsules, daily. DuoNeb. Levothyroxine Sodium Oral. PredniSONE Oral, as needed. PriLOSEC Oral. --08:23 Dale Mendoza R.N. Medication/allergy information source: the patient and patient's family. --08:25 Dale Mendoza R.N. Allergies Cipro. Constrast IV Dye. Influenza vaccine Trival. Iodine. Penicillins. Sertraline. Toradol. Tromethamine. --08:23 Dale Mendoza R.N. Methotrexate. --08:24 Dale Mendoza R.N. Lyrica. --08:24 Dale Mendoza R.N. Enbrel. --08:30 Dale Mendoza R.N. The following entry was struck by Dale Mendoza R.N., 08:29 (03/01/17) Reason - other. <<STRICKEN ENTRY-- Embril. --08:24 Dale Mendoza R.N. --END STRIKE>>. History Arrived by private vehicle. Historian: patient. Accompanied by family. Primary physician (JONATHAN CERON). 08:22 03/01/17. This started yesterday. No history of recent trauma. 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 PAST MEDICAL HX: Tetanus status: up-to-date. Immunizations: (allergic to influenza vaccine). SOCIAL HX: Never smoker. No alcohol use or drug use. No infectious disease exposure. ABUSE ASSESSMENT: No report of abuse. FALL RISK ASSESSMENT: Fall risk assessment completed. No fall risk identified. NUTRITIONAL RISK ASSESSMENT: The nutritional risk assessment revealed no deficiencies. FUNCTIONAL ASSESSMENT: Functional assessment: no impairments noted. LEARNING NEEDS ASSESSMENT: The learning needs assessment revealed no barriers. SKIN INTEGRITY ASSESSMENT: Skin integrity risk assessment completed. No skin integrity risk identified. --08:25 Dale Mendoza R.N. PAST MEDICAL HX: The patient has had a hysterectomy. --08:26 Dale Mendoza R.N. PROBLEMS: Fever. Thyroid Disease. Pneumonia. Liver disease. Depression. Anxiety Reaction. Irritable Bowel Syndrome. Fibromyalgia. Sleep paralysis. Vitamin D deficiency. Paresthesia. Pseudoseizure. Psoriasis. Sleep Apnea. PTSD. Psoriatic arthritis. Chronic Headache. Bronchitis. Seizure. Seizure Disorder. Immunizations. --08:25 Dale Mendoza R.N. ADDITIONAL SURGERIES: Appendectomy. Hysterectomy. Tonsillectomy. --08:25 Dale Mendoza R.N. Assessment 08:22 03/01/17. --08:25 Dale Mendoza R.N. Interventions 08:22 03/01/17. 08:03/01/17. ID and allergy band on patient. To treatment room. --08:25 Dale Mendoza R.N. PHYSICAL ASSESSMENT 08:26 03/01/17. To room via wheelchair. GENERAL / NEURO / PSYCH: Alert. Oriented X 4. Appears in pain. RESPIRATORY: Respirations not labored. CVS: Capillary refill less than 2 seconds. BACK: Normal inspection of the neck and back. Vertebral point tenderness over the thoracic spine. Soft tissue tenderness in the right upper thoracic paraspinous region. --08:26 Dale Mendoza R.N. NURSING PROGRESS NOTES 08:03/01/17. The plan of care for this patient has been created. Head of bed elevated. Reassurance given. Call light placed in reach. Side rails up x 2. Bed placed in lowest position. Brakes of bed on. --08:26 Dale Mendoza R.N. 08:03/01/17. Patient ready for evaluation- chart flagged and notification provided. --08:26 Dale Mendoza R.N. 08:51 03/01/2017 Morphine (Morphine Sulfate (PF)) IM 4 mg given. Given in the right deltoid. Allergies verified, confirmed 5 rights and sedative warning given to the patient. --08:51 Dale Mendoza R.N. 09:22 03/01/2017 Diazepam (Diazepam) IM 10 mg given. Given in the left deltoid. Allergies verified, confirmed 5 rights and sedative warning given to the patient. --09:37 Dale Mendoza R.N. 09:56 03/01/2017 Morphine (Morphine Sulfate (PF)) IM 10 mg given. Given in the right deltoid. Allergies verified, confirmed 5 rights and sedative warning given to the patient. --09:56 Dale Mendoza R.N. 09:57 03/01/17. --09:57 Dale Mendoza R.N. 09:57 03/01/17. BP: 142/89. HR: 72. RR: 14. O2 saturation: 99% on room air. --09:57 Dale Mendoza R.N. 09:57 03/01/17. GENERAL / NEURO / PSYCH: Alert. Oriented X 4. RESPIRATORY: No respiratory distress. Breath sounds normal. SKIN: Skin is warm and dry. --09:57 Dale Mendoza R.N. 09:58 03/01/17. --09:58 Dale Mendoza R.N. 09:57 03/01/17. Pain level now: 05/19. --09:58 Dale Mendoza R.N. 10:01 03/01/17. Patient informed about reason for wait and about plan of care. --10:01 Dale Mendoza R.N. 10:11 03/01/17. Overall patient status (Pt states she feels slightly better, 7/10 pain). --10:11 Dale Mendoza R.N. DISPOSITION / DISCHARGE 10:49 03/01/17. Condition at departure: improved. The goals identified in the patient's plan of care were met. No learning barriers present. Discharge instructions provided and reviewed with the patient. Reviewed warnings. Reviewed medication(s). Treatments reviewed. 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 Written instructions provided in [place]. The patient was discharged by the physician. She was discharged home and accompanied by family. She left the Emergency Department ambulatory and via private vehicle. Family member driving. FALL RISK ASSESSMENT: Fall risk assessment completed. No fall risk identified. --10:49 Dale Mendoza R.N. 10:48 03/01/17. BP: 146/71. HR: 76. RR: 15. O2 saturation: 99% on room air. Temp: 98.2 F (oral). Pain level now: 02/16. --10:49 Dale Mendoza R.N. 10:49 03/01/17. Departure time: 10:49. --10:49 Dale Mendoza R.N. ( Assisted patient with dressing and loading in to car with patients niece). --10:59 Dale Mendoza R.N. Locked/Released at 03/01/2017 11:00 by Dale Mendoza R.N.
--- NOTE | 2017-03-01 10:37 | ED ORDER SUMMARY ---
..... Patient: KWAN JONES OrderSheet [facility] VisitID: [id number] [address] [place] [address] 51y, F Registration Date/Time: 03/01/2017 ORDER SHEET Weight: 127.9 kg Allergies: Cipro, Constrast IV Dye, Influenza vaccine Trival, Iodine, Penicillins, Sertraline, Toradol, Tromethamine, Methotrexate, Lyrica, Enbrel GENERAL ORDERS: Cervical Spine 2 or 3V Urgent (08:42 03/01/2017 Fritz Farmer) (Ack 8:58 NHouse ER Tech1) (9:42 JBoardley R.N.) MEDICATION ORDERS: Morphine IM 4 mg (HIGH ALERT MEDICATION, NOW) (08:42 03/01/2017 Fritz Farmer) (Ack 8:44 JBoardley R.N.) (8:51 JBoardley R.N.) Diazepam IM 10 mg (HIGH ALERT MEDICATION, NOW) (08:43 03/01/2017 Fritz Farmer) (Ack 8:44 JBoardley R.N.) (9:37 JBoardley R.N.) Morphine IM 10 mg (HIGH ALERT MEDICATION, NOW) (09:54 03/01/2017 Mirza SKAGGS) (9:56 JBoardley R.N.) IV FLUIDS: ORDER SHEET NOTES: [Electronically signed by Dale Mendoza R.N. (11:00 03/01/2017)] [Electronically signed by Ladan Pizarro MD (13:20 03/01/2017)] [Electronically locked/signed by Dale Mendoza R.N. (11:00 03/01/2017)]
--- NOTE | 2017-03-01 13:20 | ED MED RECONCILIATION SUMMARY ---
Patient: KWAN JONES Medication Reconciliation Report [facility] VisitID: [id number] [address] [place] [address] 51y, F Registration Date/Time: 03/01/2017 Weight: 127.9 kg Height/Length: 64 in. BMI: 48.4 ALLERGIES: Cipro, Constrast IV Dye, Enbrel, Influenza vaccine Trival, Iodine, Lyrica, Methotrexate, Penicillins, Sertraline, Toradol, Tromethamine The patient's Home Medications are listed below: CONTINUE TAKING THE FOLLOWING MEDICATIONS: Advair Diskus Inhalation Cyclobenzaprine HCl Oral Cymbalta Oral (30 mg) 2 capsules, daily DuoNeb Levothyroxine Sodium Oral PredniSONE Oral PriLOSEC Oral The source(s) of the original Home Medication information: patient patient's family member The following Medications were given to the patient in the Emergency Department: Morphine [IM] IM 4 mg, administered: 03/01/2017 8:51:00 AM Diazepam [IM] IM 10 mg, administered: 03/01/2017 9:22:00 AM Morphine [IM] IM 10 mg, administered: 03/01/2017 9:56:00 AM The following Medications were prescribed to the patient: Hydrocodone/APAP 5mg / 325mg: take 1-2 orally every 6 hours as needed for pain. Dispense fifteen (15). No refill. -- Ladan Pizarro MD Ibuprofen 800 mg tablets: take 1 tablet orally every 8 hours as needed for pain. Dispense twenty (20). No refill. -- Ladan Pizarro MD
--- NOTE | 2017-03-01 13:20 | ED MAR SUMMARY ---
..... Medication Administration Record [facility] [address] [place] [address] Patient: KWAN JONES Visit ID: [id number] 51y, F Weight: 127.9 kg Height/Length: 64 in BMI: 48.4 ALLERGIES: Cipro, Constrast IV Dye, Influenza vaccine Trival, Iodine, Penicillins, Sertraline, Toradol, Tromethamine, Lyrica, Methotrexate, Enbrel Given 08:51 03/01/2017 Dale Mendoza R.N. Medication Administered: MORPHINE [IM] (MORPHINE SULFATE (PF)), Dose: 4 mg IM. Medication Ordered: Morphine IM 4 mg (HIGH ALERT MEDICATION, NOW). Given 09:22 03/01/2017 Dale Mendoza R.N. Medication Administered: DIAZEPAM [IM] (DIAZEPAM), Dose: 10 mg IM. Medication Ordered: Diazepam IM 10 mg (HIGH ALERT MEDICATION, NOW). Given 09:56 03/01/2017 Dale Mendoza R.N. Medication Administered: MORPHINE [IM] (MORPHINE SULFATE (PF)), Dose: 10 mg IM. Medication Ordered: Morphine IM 10 mg (HIGH ALERT MEDICATION, NOW).
--- NOTE | 2017-03-01 13:20 | ED MED RECONCILIATION SUMMARY ---
Patient: KWAN JONES Medication Reconciliation Report [facility] VisitID: [id number] [address] [place] [address] 51y, F Registration Date/Time: 03/01/2017 Weight: 127.9 kg Height/Length: 64 in. BMI: 48.4 ALLERGIES: Cipro, Constrast IV Dye, Enbrel, Influenza vaccine Trival, Iodine, Lyrica, Methotrexate, Penicillins, Sertraline, Toradol, Tromethamine The patient's Home Medications are listed below: CONTINUE TAKING THE FOLLOWING MEDICATIONS: Advair Diskus Inhalation Cyclobenzaprine HCl Oral Cymbalta Oral (30 mg) 2 capsules, daily DuoNeb Levothyroxine Sodium Oral PredniSONE Oral PriLOSEC Oral The source(s) of the original Home Medication information: patient patient's family member The following Medications were given to the patient in the Emergency Department: Morphine [IM] IM 4 mg, administered: 03/01/2017 8:51:00 AM Diazepam [IM] IM 10 mg, administered: 03/01/2017 9:22:00 AM Morphine [IM] IM 10 mg, administered: 03/01/2017 9:56:00 AM The following Medications were prescribed to the patient: Hydrocodone/APAP 5mg / 325mg: take 1-2 orally every 6 hours as needed for pain. Dispense fifteen (15). No refill. -- Ladan Pizarro MD Ibuprofen 800 mg tablets: take 1 tablet orally every 8 hours as needed for pain. Dispense twenty (20). No refill. -- Ladan Pizarro MD
--- NOTE | 2017-03-01 13:20 | ED DISCHARGE INSTRUCTIONS ---
Patient: KWAN JONES General Instructions [facility] VisitID: [id number] [address] [place] [address] 51y, F Registration Date/Time: 03/01/2017 Acute nontraumatic thoracic back pain. (muscle spasm). INSTRUCTIONS Warnings: SEDATIVE MEDICATION: You were given sedative medication during your visit. Do not drive or operate dangerous machinery for 8 hours. GENERAL WARNINGS: Return or contact your physician immediately if your condition worsens or changes unexpectedly, if not improving as expected, or if other problems arise. Your Current Medications: CONTINUE TAKING THE FOLLOWING MEDICATIONS: Advair Diskus Inhalation. Cyclobenzaprine HCl Oral. Cymbalta Oral : Capsule Delayed Release Particles 30 mg, 2 capsules daily. DuoNeb*. Levothyroxine Sodium Oral. PredniSONE Oral : prn. PriLOSEC Oral. Prescription Medications: Hydrocodone/APAP 5mg / 325mg: take 1-2 orally every 6 hours as needed for pain. Dispense fifteen (15). No refill. Ibuprofen 800 mg tablets: take 1 tablet orally every 8 hours as needed for pain. Dispense twenty (20). No refill. Follow-up: Follow up with your doctor in seven days if not better. Understanding of the discharge instructions verbalized by patient. ADDITIONAL INFORMATION Back Spasm [No Trauma] Spasm of the back muscles can occur after a sudden forceful twisting or bending force (such as in a car accident), after a simple awkward movement, or after lifting something heavy with poor body positioning. In either case, muscle spasm is often present and adds to the pain.Sleeping in an awkward position or on a poor quality mattress can also cause this. Some persons respond to emotional stress by tensing the muscles of their back. The treatment described below will usually help the pain to go away in 5-7 days. Pain that continues may require further evaluation or other types of treatment such as physical therapy. Unless you had a physical injury (for example, a car accident or fall), x-rays are usually not ordered for the initial evaluation of back pain. If pain continues and does not respond to medical treatment, x-rays and other tests may be performed at a later time. Home Care: You may need to stay in bed the first few days. But, as soon as possible, begin sitting or walking to avoid problems with prolonged bed rest (muscle weakness, worsening back stiffness and pain, blood clots in the legs). When in bed, try to find a position of comfort. A firm mattress is best. Try lying flat on your back with pillows under your knees. You can also try lying on your side with your knees bent up toward your chest and a pillow between your knees. Avoid prolonged sitting. This puts more stress on the lower back than standing or walking. Some persons find relief with heat (hot shower, hot bath, or heating pad) and massage, while others prefer cold packs (crushed or cubed ice in a plastic bag, wrapped in a towel). Try both and use the method that feels best for 20 minutes several times a day. You may use acetaminophen (Tylenol) or ibuprofen (Motrin, Advil) to control pain, unless another pain medicine was prescribed. [NOTE: If you have chronic liver or kidney disease or ever had a stomach ulcer or GI bleeding, talk with your doctor before using these medicines.] Gentle stretching will help your back heal faster. Perform this simple routine 2-3 times a day until your back is feeling better. LOW BACK STRETCH Lie on your back with your knees bent and both feet on the ground. Slowly raise your left knee to your chest as you flatten your lower back against the floor. Hold for 5 seconds. Relax and repeat the exercise with your right knee. Do 10 of these exercises for each leg. Repeat, hugging both knees to your chest at the same time. Be aware of safe lifting methods and do not lift anything over 15 pounds until all the pain is gone. Follow Up with your doctor or this facility if your symptoms do not start to improve after one week. Physical therapy or further tests may be needed. [NOTE: If x-rays were taken, they will be reviewed by a radiologist. You will be notified of any new findings that may affect your care.] Return Promptly or contact your doctor if any of the following occurs: Pain becomes worse or spreads to your legs Weakness or numbness in one or both legs Loss of bowel or bladder control Numbness in the groin or genital area Unexplained fever over 100.4F (38.0C) Burning or pain when passing urine You have been given the following additional information: Back Spasm, No Trauma (Electronically signed by Ladan Pizarro MD 03/01/2017 13:20)
--- NOTE | 2017-03-01 13:20 | ED MAR SUMMARY ---
..... Medication Administration Record [facility] [address] [place] [address] Patient: KWAN JONES Visit ID: [id number] 51y, F Weight: 127.9 kg Height/Length: 64 in BMI: 48.4 ALLERGIES: Cipro, Constrast IV Dye, Influenza vaccine Trival, Iodine, Penicillins, Sertraline, Toradol, Tromethamine, Lyrica, Methotrexate, Enbrel Given 08:51 03/01/2017 Dale Mendoza R.N. Medication Administered: MORPHINE [IM] (MORPHINE SULFATE (PF)), Dose: 4 mg IM. Medication Ordered: Morphine IM 4 mg (HIGH ALERT MEDICATION, NOW). Given 09:22 03/01/2017 Dale Mendoza R.N. Medication Administered: DIAZEPAM [IM] (DIAZEPAM), Dose: 10 mg IM. Medication Ordered: Diazepam IM 10 mg (HIGH ALERT MEDICATION, NOW). Given 09:56 03/01/2017 Dale Mendoza R.N. Medication Administered: MORPHINE [IM] (MORPHINE SULFATE (PF)), Dose: 10 mg IM. Medication Ordered: Morphine IM 10 mg (HIGH ALERT MEDICATION, NOW).
--- NOTE | 2017-03-01 13:53 | DIAGNOSTIC IMAGING REPORT ---
PROCEDURE: XR CERVICAL SPINE 2 OR 3 VIEW INDICATION: NECK PAIN TECHNIQUE: Three views. COMPARISON: None. FINDINGS: Spondylosis of C5-6 with a posterior osteophytic ridge. No evidence of an acute process or fracture. IMPRESSION: 1. Spondylosis C5-6 with a posterior osteophytic ridge.
== END 2017-03-01 10:49 | disposition home or self-care (01) ==
LOC: ED SRH 08:06
DX: M54.6 Pain in thoracic spine (principal); M62.830 Muscle spasm of back; M54.2 Cervicalgia; R20.0 Anesthesia of skin; E07.9 Disorder of thyroid, unspecified; G40.909 Epilepsy, unspecified, not intractable, without status epilepticus; Z79.51 Long term (current) use of inhaled steroids; Z79.899 Other long term (current) drug therapy; Z88.0 Allergy status to penicillin; Z91.041 Radiographic dye allergy status; Z88.6 Allergy status to analgesic agent; Z88.1 Allergy status to other antibiotic agents